=== PATIENT | male | born 1945 | race Caucasian/White ===

== ENCOUNTER 2016-06-08 10:41 | Inpatient (IN) | payer MEDICARE ==
[~2016-06-08] VITALS: Ht 182.9 cm; Wt 92.5 kg
[2016-06-08] MEDS ORDERED: PSYL0.5211 PO (11:09)
[2016-06-08] MEDS ORDERED: PRED20TA PO (11:09)
[2016-06-08] MEDS ORDERED: ASCO500C16 PO (11:09)
[2016-06-08] MEDS ORDERED: LORA1TAB PO (11:09)
[2016-06-08] MEDS ORDERED: ATOR40TA PO (11:09)
[2016-06-08] MEDS ORDERED: ZOLP10TA6 PO (11:09)
[2016-06-08] MEDS ORDERED: GABA-534 PO (11:09)
[2016-06-08] MEDS ORDERED: VALS160T24 PO (11:09)
[2016-06-08] MEDS ORDERED: OXYC-162 PO (11:09)
[2016-06-08] MEDS ORDERED: LAMO100T PO (11:09)
[2016-06-08] MEDS ORDERED: ISOS30TA47 PO (11:09)
[2016-06-08] MEDS ORDERED: MIRT15TA7 PO (11:09)
[2016-06-08 11:44] LABS: *BILIRUBIN,URIN NEGATIVE (NEGATIVE); *BLOOD, URINE Trace-intact (NEGATIVE); *CLARITY,URINE CLEAR (CLEAR); *COLOR,URINE YELLOW (YELLOW); *KETONES,URINE NEGATIVE (NEGATIVE); *PROTEIN,URINE NEGATIVE (NEGATIVE); *UROBILINOGEN,URINE 0.2 E.U./dl (NORMAL); NITRITE, URINE NEGATIVE (NEGATIVE); UGLUCOSE NEGATIVE (NEGATIVE)
[2016-06-08 11:46] LABS: BASOPHILS # (AUTO) 0.1 K/uL (0.0-0.2); BASOPHILS % (AUTO) 1.7 % (0.0-2.0); EOSINOPHILS # (AUTO) 0.1 K/uL (0.0-0.7); EOSINOPHILS % (AUTO) 2.2 % (0.0-7.0); HEMOGLOBIN 16.3 g/dL (14.0-18.0); LYMPHOCYTES # (AUTO) 1.1 K/uL (0.8-4.8); LYMPHOCYTES % (AUTO) 20.8 % (20.5-51.5); MEAN CORPUSCULAR HEMOGLOBIN 31.3 uug (27.0-31.0); MEAN CORPUSCULAR HGB CONC 35 g/dL (32.0-37.0); MEAN CORPUSCULAR VOLUME 88.4 fL (82.0-92.0); MONOCYTES # (AUTO) 0.4 K/uL (0.1-1.30); MONOCYTES % (AUTO) 7.6 % (0.0-11.0); NEUTROPHILS # (AUTO) 3.8 K/uL (1.8-8.9); NEUTROPHILS % (AUTO) 67.7 % (38.5-71.5); PLATELET COUNT (AUTO) 102 K/uL (150-450); RED BLOOD CELL COUNT(AUTO) 5.21 MIL/uL (4.70-6.10); RED CELL DISTRIBUTION WIDTH 11.7 % (11.5-14.5); WHITE BLOOD COUNT (AUTO) 5.5 K/uL (4.0-11.2)
[2016-06-08 11:54] LABS: CALCIUM 8.7 mg/dL (8.5-10.1); CARBON DIOXIDE 27 mmol/L (21-32); CHLORIDE 104 mmol/L (98-107); GFR 50 mL/min (>60); GLUCOSE 86 mg/dL (74-106); POTASSIUM 4.3 mmol/L (3.5-5.1); SODIUM SERUM 139 mmol/L (136-145); UREA NITROGEN, BLOOD 22 mg/dL (7-18)
[2016-06-08 11:59] LABS: ALANINE AMINOTRANSFERASE 25 U/L (16-63); ALBUMIN 3.7 g/dL (3.4-5.0); ALKALINE PHOSPHATASE 87 U/L (50-136); ASPARTATE AMINOTRANSFERASE 20 U/L (15-37); BILIRUBIN,DIRECT 0.2 mg/dL (0.0-0.2); BILIRUBIN,TOTAL 1.5 mg/dL (0.2-1.0); TOTAL PROTEIN, SERUM 6.6 g/dL (6.4-8.2)
[2016-06-08 12:01] LABS: ACETAMINOPHEN < 2.0 ug/mL (10-30); CREATININE 1.4 mg/dL (0.6-1.3)
[2016-06-08 12:06] LABS: THYROID STIMULATING HORMONE 1.341 mIU/mL (0.358-3.740)
[2016-06-08 12:11] LABS: LEUKOCYTE ESTERASE ,URINE TRACE (NEGATIVE)
[2016-06-08 12:12] LABS: BACTERIA,URINE NONE SEEN /HPF (NONE SEEN); MUCUS,URINE FEW /LPF (0-FEW); SQUAMOUS EPITHELIAL CELL,UR FEW /HPF (NONE SEEN); WBC,URINE 20-50 /HPF (0-3)
[2016-06-08 12:15] LABS: *AMPHETAMINE, URINE NEGATIVE (NEGATIVE); *BARBITURATE, URINE NEGATIVE (NEGATIVE); *CANNABINOID, URINE POSITIVE (NEGATIVE); *COCCAINE, URINE NEGATIVE (NEGATIVE); *OPIATE, URINE NEGATIVE (NEGATIVE); *PHENCYCLIDINE SCREEN,URINE NEGATIVE (NEGATIVE)
--- NOTE | 2016-06-08 12:49 | NUR ---
Jay Kaminski here for psych eval.
--- NOTE | 2016-06-08 13:30 | NUR ---
Pt placed on 5150 hold (DTS) by Jay Kaminski.
--- NOTE | 2016-06-08 14:47 | NUR ---
Pt resting in gurney with no s/s of distress noted, pending admission to [facility] post change of shift.
[2016-06-08 20:00] VITALS: BP 151/94
--- NOTE | 2016-06-08 20:46 | NUR ---
Pt. admitted to GPS, under care of Dr. Cardona Belongs List completed
[2016-06-08] MEDS ORDERED: MAG HYDROX/AL HYDROX/SIMETH 30 ML LIQUID UDC PO PRN (21:30)
[2016-06-08] MEDS ORDERED: MAGNESIUM HYDROXIDE 30 ML LIQUID UDC PO PRN (21:30)
[2016-06-08] MEDS ORDERED: ACETAMINOPHEN 325 MG TABLET PO PRN (21:30)
[2016-06-08] MEDS ORDERED: TEMAZEPAM 7.5 MG CAPSULE PO PRN (21:30)
[2016-06-08] MEDS ORDERED: OXYCODONE/APAP 5-325 MG TABLET PO PRN (21:45)
--- NOTE | 2016-06-08 22:00 | NUR ---
GPS: Admitted to unit earlier a 71 yr.old male under the care of in stable condition. Pt.is on a 72 hour hold for DTS. Pt's niece brought him in the E.R. after finding box of knives,an axe,a box inspector and making statements of giving away his belongings when he's gone,per hold. Pt. is depressed,tearful,feels hopeless but denies any plan to hurt self. Contracts for safety while in the hosp. Re-assured prn by staff. Belongings list completed. Body assessment done. Will monitor closely.
[2016-06-08 22:40] VITALS: BP 151/94
[2016-06-08] MEDS ORDERED: TEMAZEPAM 7.5 MG CAPSULE ONE (23:39)
[2016-06-09 06:56] LABS: BASOPHILS # (AUTO) 0.1 K/uL (0.0-0.2); EOSINOPHILS # (AUTO) 0.2 K/uL (0.0-0.7); EOSINOPHILS % (AUTO) 3.3 % (0.0-7.0); HEMATOCRIT 46.5 % (40.0-50.0); HEMOGLOBIN 16.2 g/dL (14.0-18.0); LYMPHOCYTES # (AUTO) 1.2 K/uL (0.8-4.8); LYMPHOCYTES % (AUTO) 21.4 % (20.5-51.5); MEAN CORPUSCULAR HEMOGLOBIN 30.9 uug (27.0-31.0); MEAN CORPUSCULAR HGB CONC 35 g/dL (32.0-37.0); MEAN CORPUSCULAR VOLUME 88.9 fL (82.0-92.0); MONOCYTES # (AUTO) 0.5 K/uL (0.1-1.30); MONOCYTES % (AUTO) 8.6 % (0.0-11.0); NEUTROPHILS # (AUTO) 3.8 K/uL (1.8-8.9); NEUTROPHILS % (AUTO) 65.7 % (38.5-71.5); PLATELET COUNT (AUTO) 94 K/uL (150-450); RED BLOOD CELL COUNT(AUTO) 5.23 MIL/uL (4.70-6.10); RED CELL DISTRIBUTION WIDTH 11.9 % (11.5-14.5); WHITE BLOOD COUNT (AUTO) 5.8 K/uL (4.0-11.2)
[2016-06-09 07:30] VITALS: BP 145/79
[2016-06-09 07:41] LABS: ALBUMIN 3.5 g/dL (3.4-5.0); BILIRUBIN,TOTAL 1.2 mg/dL (0.2-1.0); CALCIUM 8.9 mg/dL (8.5-10.1); CREATININE 1.3 mg/dL (0.6-1.3); MAGNESIUM 2.2 mg/dL (1.8-2.4); PHOSPHOROUS 3.1 mg/dL (2.5-4.9); POTASSIUM 4.2 mmol/L (3.5-5.1); TOTAL PROTEIN, SERUM 6.4 g/dL (6.4-8.2)
[2016-06-09 08:24] LABS: BAND % (MANUAL) 1 % (0-10); EOSINOPHILS % (MANUAL) 3 % (0-8); LYMPHOCYTES % (MANUAL) 19 % (20-40); MONOCYTES % (MANUAL) 5 % (2-10); NEUTROPHILS % (MANUAL) 72 % (42-75)
[2016-06-09 08:27] LABS: PLATELET ESTIMATE DECRE
[2016-06-09] MEDS ORDERED: ASCORBIC ACID 1000 MG PO SCH (09:00)
[2016-06-09] MEDS ORDERED: Medication Not On Formulary EA (Isosorbide Dinitrate 30 MG) PO SCH (09:00)
[2016-06-09] MEDS ORDERED: LAMOTRIGINE 100 MG TABLET PO SCH ×2 (09:00→14:15)
[2016-06-09] MEDS: predniSONE 20 MG TABLET PO SCH ×2 (09:08→17:52)
[2016-06-09] MEDS: ASCORBIC ACID 500 MG TABLET PO SCH (09:08)
[2016-06-09] MEDS: SULFAMETH/TRIMETH 800/160 MG TABLET PO SCH ×2 (09:08→20:10)
[2016-06-09] MEDS: ISOSORBIDE DINITRATE 10 MG TABLET PO SCH (09:17)
[2016-06-09] MEDS ORDERED: QUETIAPINE FUMARATE 25 MG TABLET PO PRN (14:15)
[2016-06-09] MEDS: LORAZEPAM 0.5 MG TABLET PO PRN (14:40)
[2016-06-09 15:47] VITALS: BP 119/71
[2016-06-09 19:45] VITALS: BP 119/73
[2016-06-09] MEDS: ATORVASTATIN 40 MG TABLET PO SCH (20:10)
[2016-06-09] MEDS ORDERED: GABAPENTIN 300 MG CAPSULE PO SCH (21:00)
[2016-06-10] MEDS: LORAZEPAM 0.5 MG TABLET PO PRN ×2 (01:36→12:43)
[2016-06-10 07:30] VITALS: BP 115/63
[2016-06-10] MEDS: ASCORBIC ACID 500 MG TABLET PO SCH (09:09)
[2016-06-10] MEDS: LAMOTRIGINE 100 MG TABLET PO SCH (09:10)
[2016-06-10] MEDS: ISOSORBIDE DINITRATE 10 MG TABLET PO SCH (09:10)
[2016-06-10] MEDS: predniSONE 20 MG TABLET PO SCH ×2 (09:11→17:22)
[2016-06-10] MEDS: SULFAMETH/TRIMETH 800/160 MG TABLET PO SCH ×2 (09:11→20:43)
[2016-06-10 16:24] VITALS: BP 145/79
[2016-06-10] MEDS: ATORVASTATIN 40 MG TABLET PO SCH (20:42)
[2016-06-10 20:53] VITALS: BP 148/83
[2016-06-10] MEDS ORDERED: QUETIAPINE FUMARATE 25 MG TABLET PO SCH (21:00)
[2016-06-11 07:30] VITALS: BP 129/78
[2016-06-11] MEDS: ASCORBIC ACID 500 MG TABLET PO SCH (08:56)
[2016-06-11] MEDS: ISOSORBIDE DINITRATE 10 MG TABLET PO SCH (08:57)
[2016-06-11] MEDS: SULFAMETH/TRIMETH 800/160 MG TABLET PO SCH ×2 (08:57→21:54)
[2016-06-11] MEDS: predniSONE 20 MG TABLET PO SCH ×2 (08:57→17:49)
[2016-06-11] MEDS: LAMOTRIGINE 100 MG TABLET PO SCH (08:57)
[2016-06-11] MEDS: LORAZEPAM 0.5 MG TABLET PO PRN (08:59)
[2016-06-11] MEDS: QUETIAPINE FUMARATE 25 MG TABLET PO SCH (12:23)
--- NOTE | 2016-06-11 15:17 | NUR ---
Initial discharge instructions: Pt resides at his niece Katy's home [[address] [place],[address];[phone]].Per Katy,she can no longer allow the pt to live at her residence.Katy stated the pt would like to accompany her to visit his son,Tarun in [facility]. Spoke with pt,who stated he would will be traveling there with his niece once discharged.SW will speak with pt,family,and MD regarding appropriate discharge plans.SW will form a safe and proper discharge.
[2016-06-11 17:09] VITALS: BP 103/56
[2016-06-11 20:00] VITALS: BP 132/76
[2016-06-11] MEDS ORDERED: QUETIAPINE FUMARATE 25 MG TABLET PO SCH (21:00)
[2016-06-11] MEDS: ATORVASTATIN 40 MG TABLET PO SCH (21:54)
[2016-06-12] MEDS: ZOLPIDEM 5 MG TABLET PO PRN ×2 (00:16→21:54)
[2016-06-12 07:00] LABS: BASOPHILS % (AUTO) 0.1 % (0.0-2.0); EOSINOPHILS % (AUTO) 0.2 % (0.0-7.0); HEMATOCRIT 45.3 % (40.0-50.0); HEMOGLOBIN 15.4 g/dL (14.0-18.0); LYMPHOCYTES # (AUTO) 1.2 K/uL (0.8-4.8); LYMPHOCYTES % (AUTO) 11.2 % (20.5-51.5); MEAN CORPUSCULAR HEMOGLOBIN 30.3 uug (27.0-31.0); MEAN CORPUSCULAR HGB CONC 34 g/dL (32.0-37.0); MONOCYTES # (AUTO) 0.7 K/uL (0.1-1.30); MONOCYTES % (AUTO) 6.7 % (0.0-11.0); NEUTROPHILS # (AUTO) 8.4 K/uL (1.8-8.9); NEUTROPHILS % (AUTO) 81.8 % (38.5-71.5); PLATELET COUNT (AUTO) 130 K/uL (150-450); RED BLOOD CELL COUNT(AUTO) 5.09 MIL/uL (4.70-6.10); RED CELL DISTRIBUTION WIDTH 11.9 % (11.5-14.5); WHITE BLOOD COUNT (AUTO) 10.3 K/uL (4.0-11.2)
[2016-06-12 07:17] LABS: ALBUMIN 3.6 g/dL (3.4-5.0); BILIRUBIN,TOTAL 0.9 mg/dL (0.2-1.0); CALCIUM 8.9 mg/dL (8.5-10.1); MAGNESIUM 2.3 mg/dL (1.8-2.4); PHOSPHOROUS 3.5 mg/dL (2.5-4.9); POTASSIUM 4.4 mmol/L (3.5-5.1); TOTAL PROTEIN, SERUM 6.5 g/dL (6.4-8.2)
[2016-06-12 07:30] VITALS: BP 128/61
[2016-06-12 07:30] LABS: CREATININE 1.6 mg/dL (0.6-1.3)
[2016-06-12] MEDS: SULFAMETH/TRIMETH 800/160 MG TABLET PO SCH ×2 (08:00→20:37)
[2016-06-12] MEDS: ASCORBIC ACID 500 MG TABLET PO SCH (08:00)
[2016-06-12] MEDS: LAMOTRIGINE 100 MG TABLET PO SCH (08:00)
[2016-06-12] MEDS: predniSONE 20 MG TABLET PO SCH ×2 (08:00→17:43)
[2016-06-12] MEDS: QUETIAPINE FUMARATE 25 MG TABLET PO SCH ×3 (08:02→17:43)
[2016-06-12] MEDS: ISOSORBIDE DINITRATE 10 MG TABLET PO SCH (08:02)
[2016-06-12] MEDS: LORAZEPAM 0.5 MG TABLET PO PRN (09:33)
--- NOTE | 2016-06-12 14:41 | NUR ---
GPS./RN- patient notified of 14 day PC hearing for tomorrow 330pm, he will notify his niece.
--- NOTE | 2016-06-12 14:55 | NUR ---
weekly meeting: HIGH CHOLESTEROL,HTN,BIPOLAR DISORDER,DEPRESSION,ANXIETY TOLERATING CURRENT DIET (CARDIAC),EATING 100% OF MEALS NO N/V/D ANTHROPOMETRY:HT IS 72",CURRENT W IS 204LB,BMI 27.7-OVERWEIGHT, 3LB WT LOSS IN 4 DAYS,LIKELY DUE TO OTHER FACTORS MEDICATIONS: LIPITOR,PREDNISONE,VITAMIN C, DNI PREDNISONE MAY ELEVATED BLOOD SUGAR LABS:06/12 BUN/CR-27/1.6(H/H) NUTRITION DIAGNOSIS: ALTERED NUTRITION LAB VALUES RELATED TO RENAL ISSUES, EVIDENCED BY ABOVE LAB VALUES INTERVENTION: IF BUN/CR CONTINUE TO ELEVATE, WILL CONSIDER PROTEIN RESTRICTION DIET NEPHROLOGY CONSULT PLANNED MONITOR;PO INTAKE,WT,NEW LABS Addendum: 06/12/16 at [address] Amended: Links added.
[2016-06-12 16:00] VITALS: BP 136/90
[2016-06-12 20:09] VITALS: BP 134/83
[2016-06-12] MEDS: ATORVASTATIN 40 MG TABLET PO SCH (20:37)
[2016-06-12] MEDS ORDERED: QUETIAPINE FUMARATE 25 MG TABLET PO SCH (21:00)
[2016-06-13 07:30] VITALS: BP 124/74
[2016-06-13] MEDS: predniSONE 20 MG TABLET PO SCH ×2 (08:27→17:22)
[2016-06-13] MEDS: ISOSORBIDE DINITRATE 10 MG TABLET PO SCH (08:32)
[2016-06-13] MEDS: ASCORBIC ACID 500 MG TABLET PO SCH (08:32)
[2016-06-13] MEDS: LAMOTRIGINE 100 MG TABLET PO SCH (08:33)
[2016-06-13] MEDS: QUETIAPINE FUMARATE 25 MG TABLET PO SCH ×3 (08:33→17:23)
[2016-06-13 11:30] LABS: *BILIRUBIN,URIN NEGATIVE (NEGATIVE); *BLOOD, URINE NEGATIVE (NEGATIVE); *CLARITY,URINE CLEAR (CLEAR); *COLOR,URINE YELLOW (YELLOW); *KETONES,URINE NEGATIVE (NEGATIVE); *PROTEIN,URINE NEGATIVE (NEGATIVE); *UROBILINOGEN,URINE 0.2 E.U./dl (NORMAL); LEUKOCYTE ESTERASE ,URINE NEGATIVE (NEGATIVE); NITRITE, URINE NEGATIVE (NEGATIVE); UGLUCOSE NEGATIVE (NEGATIVE)
[2016-06-13 11:39] LABS: BACTERIA,URINE NONE SEEN /HPF (NONE SEEN); RBC,URINE 0-3 /HPF (0-3); SQUAMOUS EPITHELIAL CELL,UR FEW /HPF (NONE SEEN); WBC,URINE 0-3 /HPF (0-3)
[2016-06-13 11:40] LABS: *CREATININE,URINE 139.2 mg/dL (30-125); *URINE TOTAL PROTEIN RANDOM 16.2 mg/dL (<150/24HR)
[2016-06-13 12:57] LABS: CALCIUM 9.1 mg/dL (8.5-10.1); POTASSIUM 4.4 mmol/L (3.5-5.1)
[2016-06-13 13:04] LABS: CREATININE 1.7 mg/dL (0.6-1.3)
[2016-06-13 20:00] VITALS: BP 145/87
[2016-06-13] MEDS: ATORVASTATIN 40 MG TABLET PO SCH (20:27)
[2016-06-13] MEDS ORDERED: QUETIAPINE FUMARATE 25 MG TABLET PO SCH (21:00)
--- NOTE | 2016-06-13 22:00 | NUR ---
PATIENT RECEIVED IN ROOM AWAKE. PATIENT ALERT/ORIENTED X3 ABLE TO MAKE NEEDS KNOWN. PATIENT IS EASILY AGITATED, EASILY IRRITABLE HOWEVER IS REDIRECTABLE. PATIENT COMPLAINT WITH HS MEDICATION. PATIENT DENIES SI/VH/AH WILL CONTINUE TO MONITOR AND REDIRECT. NO AGGRESSIVE OR COMBATIVE BEHAVIOR NOTED WILL CONTINUE TO MONITOR. PATIENT DENIES PAIN AT THIS TIME WILL CONTINUE TO MONITOR.
[2016-06-13] MEDS: ZOLPIDEM 5 MG TABLET PO PRN (22:45)
[2016-06-14 07:04] LABS: BASOPHILS # (AUTO) 0.1 K/uL (0.0-0.2); BASOPHILS % (AUTO) 0.5 % (0.0-2.0); EOSINOPHILS % (AUTO) 0.1 % (0.0-7.0); HEMOGLOBIN 16.8 g/dL (14.0-18.0); LYMPHOCYTES # (AUTO) 1.2 K/uL (0.8-4.8); LYMPHOCYTES % (AUTO) 10.1 % (20.5-51.5); MEAN CORPUSCULAR HGB CONC 34 g/dL (32.0-37.0); MEAN CORPUSCULAR VOLUME 89.1 fL (82.0-92.0); MONOCYTES # (AUTO) 0.9 K/uL (0.1-1.30); MONOCYTES % (AUTO) 7.3 % (0.0-11.0); NEUTROPHILS # (AUTO) 9.8 K/uL (1.8-8.9); PLATELET COUNT (AUTO) 160 K/uL (150-450); RED BLOOD CELL COUNT(AUTO) 5.62 MIL/uL (4.70-6.10); RED CELL DISTRIBUTION WIDTH 11.9 % (11.5-14.5)
[2016-06-14 07:30] VITALS: BP 120/79
[2016-06-14 07:53] LABS: ALBUMIN 4.2 g/dL (3.4-5.0); BILIRUBIN,TOTAL 0.9 mg/dL (0.2-1.0); CALCIUM 9.4 mg/dL (8.5-10.1); MAGNESIUM 2.4 mg/dL (1.8-2.4); PHOSPHOROUS 3.5 mg/dL (2.5-4.9); POTASSIUM 4.4 mmol/L (3.5-5.1); TOTAL PROTEIN, SERUM 7.4 g/dL (6.4-8.2)
[2016-06-14 07:58] LABS: CREATININE 1.6 mg/dL (0.6-1.3)
[2016-06-14 08:17] LABS: LYMPHOCYTES % (MANUAL) 10 % (20-40); MONOCYTES % (MANUAL) 6 % (2-10); NEUTROPHILS % (MANUAL) 84 % (42-75)
[2016-06-14] MEDS: QUETIAPINE FUMARATE 25 MG TABLET PO SCH ×2 (08:18→12:20)
[2016-06-14] MEDS: predniSONE 20 MG TABLET PO SCH (08:20)
[2016-06-14] MEDS: LAMOTRIGINE 100 MG TABLET PO SCH (08:20)
[2016-06-14] MEDS: ASCORBIC ACID 500 MG TABLET PO SCH (08:20)
[2016-06-14 08:21] VITALS: BP 120/79
[2016-06-14] MEDS: ISOSORBIDE DINITRATE 10 MG TABLET PO SCH (08:21)
--- NOTE | 2016-06-14 11:17 | NUR ---
DC Note: Patient accepted placement and will be discharged to [facility] [[address] [place], [address]; [phone]] via private taxi at 12:00 pm. Patient will be provided with taxi voucher. Family are unable to assist with patients care and/or transfer, however were informed. Spoke with patient's niece, Katy Pedraza [phone] on 06/13/16 who reported she was aware and agreeable with discharge plans. Spoke with patient's second niece, Violetta Hurt [phone] and was provided with facility information. Patients family is aware and agreeable with discharge plans. SW spoke with Luisa in Admissions on 06/13/16 who stated the patient will be accepted on 06/14/16. SW also spoke with Lissa in Admissions today 06/14/16 who stated the patient will be accepted at any time. Patient is aware and agreeable with discharge plans. Patient was provided with a brief substance abuse intervention and referred to [facility] , [facility] , and [facility] . Patient will follow-up with (Reception Centre Manager) at the facility, and was referred to [phone], , , and [phone] for psychiatric referrals. Additional resources included, [facility] [ , [facility] , [facility], [facility]. [phone], and [facility] .
--- NOTE | 2016-06-14 13:30 | NUR ---
1300 Discharge instructions given to the patient regarding medications to continue after discharge at [facility], [facility] - patient verbalized understanding. Prescription both medical and psychiatric given and received by patient. All valuables and other belongings returned and signed. 1330 Discharge patient to [facility] via taxi voucher, patient alert asnd ox4, denies SI/HI. No avhallucinations. No delusions noted.
== END 2016-06-14 13:30 | DRG 885 ==
LOC: ER 10:41 → GPS 20:48
PROVIDERS: ADMIT Psychiatry & Neurology Psychosomatic Medicine; ATTEND Internal Medicine
DX: F31.4 Bipolar disorder, current episode depressed, severe, without psychotic features (principal); N17.0 Acute kidney failure with tubular necrosis; Q04.3 Other reduction deformities of brain; N39.0 Urinary tract infection, site not specified; R17 Unspecified jaundice; Z87.898 Personal history of other specified conditions; I69.398 Other sequelae of cerebral infarction; G93.89 Other specified disorders of brain; G47.00 Insomnia, unspecified; H93.19 Tinnitus, unspecified ear; E78.5 Hyperlipidemia, unspecified; D69.6 Thrombocytopenia, unspecified; Z81.8 Family history of other mental and behavioral disorders; R35.1 Nocturia; F43.10 Post-traumatic stress disorder, unspecified; X58.XXXS Exposure to other specified factors, sequela; T37.0X5A Adverse effect of sulfonamides, initial encounter; Y92.009 Unspecified place in unspecified non-institutional (private) residence as the place of occurrence of the external cause; M51.36 Other intervertebral disc degeneration, lumbar region; Z62.810 Personal history of physical and sexual abuse in childhood; F12.90 Cannabis use, unspecified, uncomplicated; I10 Essential (primary) hypertension; Z79.899 Other long term (current) drug therapy; F41.9 Anxiety disorder, unspecified
CPT/HCPCS: 36415; 70030-TC; 70450; 71010; 76770; 80307; 83735; 83970; 84100; 84156; 84300; 84443; 85025; 85730; 93005; A4663; G0480-TC; J7512